=== PATIENT | female | born 1995 | race Caucasian/White ===

== ENCOUNTER 2024-01-08 08:07 | Inpatient (IN) | payer OTHER, SELFPAY ==
[2024-01-08 08:22] VITALS: BP 117/72; BMI 27.4
[2024-01-08] MEDS: LR 1000 IV ×2 (08:30→14:13)
[2024-01-08 09:33] LABS: % Basophils 0.2 % (0-2); % Eosinophils 0.5 % (0-6); % Immature Granulocytes 0.4 % (0-0.5); % Lymphocytes 28.7 % (20.5-51.1); % Monocytes 6.5 % (1.7-9.3); % Neutrophils 63.7 % (42.2-75.2); Absolute Eosinophils 0.1 10^3/uL (0-0.7); Absolute Lymphocytes 2.9 10^3/uL (1.2-3.4); Absolute Monocytes 0.7 10^3/uL (0.1-0.6); Absolute Neutrophils 6.4 10^3/uL (1.4-6.5); Hematocrit 39.6 % (37.0-47.0); Hemoglobin 14.1 g/dL (12.0-16.0); Mean Corp Hgb Conc. 35.6 g/dL (33.0-37.0); Mean Corpuscular Hgb 31.3 pg (27.0-31.0); Mean Platelet Volume 10.8 fL (7.4-10.4); Nucleated Red Blood Cells % 0 %; Platelet Count 236 10^3/uL (130-400); Red Cell Dist. Width 12.4 % (11.5-14.5); White Blood Cell Count 10.1 10^3/uL (4.8-10.8)
[2024-01-08] MEDS: PENICILLIN 110 UNITS IV (10:15)
[2024-01-08] MEDS: PITOCIN 30 UNITS/NSS 500 ML IV (10:15)
[2024-01-08] MEDS: PENICILLIN 55 UNITS IV ×2 (14:13→18:15)
[2024-01-08] MEDS: SUBLIMAZE 100 MCG EPIDURAL (15:47)
[2024-01-08] MEDS: FENTANYL/BUPIVACAINE 100 EPIDURAL (15:47)
[2024-01-08 20:33] LABS: Cord ABG Comment CORD BLOOD
[2024-01-08 20:34] LABS: B.E. Cord ABG -5.9 mMOL/L; O2 Saturation % Cord ABG 10.7 %; PCO2 Cord ABG 70 mmHg; PO2 Cord ABG 9 mmHg; pH Cord ABG 7.16
[2024-01-08 20:37] LABS: B.E. Cord ABG -6.2 mMOL/L; HCO3 Cord ABG 22.2 mmol/L; O2 Saturation % Cord ABG 31.7 %; PCO2 Cord ABG 53 mmHg; PO2 Cord ABG 21 mmHg; pH Cord ABG 7.23
[2024-01-09] MEDS: TYLENOL 650 MG PO ×4 (05:32→23:11)
[2024-01-09 06:19] LABS: Hematocrit 37.4 % (37.0-47.0)
[2024-01-09] MEDS: PRENATAL PLUS 1 TABLET PO (10:09)
[2024-01-09] MEDS: SENOKOT-S 1 TABLET PO (10:09)
[2024-01-09] MEDS: MOTRIN 600 MG PO ×3 (10:10→23:11)
[2024-01-09 15:08] LABS: Syphilis/T. pallidum Ab Reflex Negative (Negative)
[2024-01-10] MEDS: MOTRIN 600 MG PO (05:17)
[2024-01-10] MEDS: TYLENOL 650 MG PO (05:17)
[2024-01-10] MEDS: PRENATAL PLUS 1 TABLET PO (08:11)
== END 2024-01-10 11:32 | disposition home or self-care (01) | DRG 807 ==
LOC: LDRP 08:07
PROVIDERS: ADMITTING PHYSICIAN Obstetrics & Gynecology
PROC: 0KQM0ZZ Repair Perineum Muscle, Open Approach (ICD-10-PCS; 2024-01-08)
PROC: 10E0XZZ Delivery of Products of Conception, External Approach (ICD-10-PCS; 2024-01-08)
PROC: 10907ZC Drainage of Amniotic Fluid, Therapeutic from Products of Conception, Via Natural or Artificial Opening (ICD-10-PCS; 2024-01-08)
PROC: 3E033VJ Introduction of Other Hormone into Peripheral Vein, Percutaneous Approach (ICD-10-PCS; 2024-01-08)
DX: O48.0 Post-term pregnancy (principal); Z37.0 Single live birth; Z3A.40 40 weeks gestation of pregnancy; O99.824 Streptococcus B carrier state complicating childbirth; O77.0 Labor and delivery complicated by meconium in amniotic fluid; O76 Abnormality in fetal heart rate and rhythm complicating labor and delivery; O32.6XX0 Maternal care for compound presentation, not applicable or unspecified; O70.1 Second degree perineal laceration during delivery
CPT/HCPCS: 36415; 82803; 85014; 85018; 85025; 86780; 86850; 86900; 86901

== ENCOUNTER → 2024-11-29 11:08 | Outpatient (REF) | payer OTHER, SELFPAY | LOC: RAD 11:08 | PROVIDERS: ATTENDING PHYSICIAN Student in an Organized Health Care Education/Training Program | DX: O26.851 Spotting complicating pregnancy, first trimester (principal) | CPT/HCPCS: 76801; 76817 ==